=== PATIENT | male | born 1990 | race Caucasian/White ===

== ENCOUNTER 2017-06-01 13:17 | Emergency (ER) | payer OTHER ==
[~2017-06-01] VITALS: Ht 175.2 cm; Wt 90.7 kg
[2017-06-01] MEDS ORDERED: TESSALON PERLE100 MG PO (15:00)
== END 2017-06-01 15:02 | disposition home or self-care (01) ==
LOC: ED 13:17
DX: J06.9 Acute upper respiratory infection, unspecified (principal); F17.200 Nicotine dependence, unspecified, uncomplicated

== ENCOUNTER 2018-03-24 09:46 | Emergency (ER) | payer SELFPAY ==
[~2018-03-24] VITALS: Wt 104.3 kg
[~2018-03-24 09:46] MED LIST: TESSALON PERLE100 MG PO
== END 2018-03-24 11:10 | disposition home or self-care (01) ==
LOC: ED 09:46
DX: S61.214A Laceration without foreign body of right ring finger without damage to nail, initial encounter (principal); S61.216A Laceration without foreign body of right little finger without damage to nail, initial encounter; Z23 Encounter for immunization; W45.8XXA Other foreign body or object entering through skin, initial encounter; Y93.89 Activity, other specified; Y92.89 Other specified places as the place of occurrence of the external cause; Y99.8 Other external cause status

== ENCOUNTER 2019-11-05 05:12 | Emergency (ER) | payer OTHER ==
[~2019-11-05] VITALS: Ht 172.7 cm; Wt 93.0 kg
== END 2019-11-05 05:31 | disposition left against medical advice (07) ==
LOC: ED 05:12
DX: M54.5 Low back pain (principal); M79.604 Pain in right leg; Z79.899 Other long term (current) drug therapy; Z53.29 Procedure and treatment not carried out because of patient's decision for other reasons; V43.52XA Car driver injured in collision with other type car in traffic accident, initial encounter; Y93.I9 Activity, other involving external motion; Y92.488 Other paved roadways as the place of occurrence of the external cause; Y99.8 Other external cause status

== ENCOUNTER 2020-01-03 15:57 | Emergency (ER) | payer SELFPAY ==
[~2020-01-03] VITALS: Ht 175.2 cm; Wt 108.9 kg
[2020-01-03] MEDS ORDERED: IBUPROFEN600 MG PO (17:10)
[2020-01-03] MEDS ORDERED: ROBAXIN-750750 MG PO (17:10)
== END 2020-01-03 17:46 | disposition home or self-care (01) ==
LOC: ED 15:57
DX: S39.012A Strain of muscle, fascia and tendon of lower back, initial encounter (principal); Z79.899 Other long term (current) drug therapy; V89.2XXA Person injured in unspecified motor-vehicle accident, traffic, initial encounter; Y93.89 Activity, other specified; Y92.89 Other specified places as the place of occurrence of the external cause; Y99.8 Other external cause status

== ENCOUNTER 2025-01-10 19:13 | Emergency (ER) | payer SELFPAY ==
[~2025-01-10] VITALS: Ht 175.2 cm; Wt 99.8 kg
[~2025-01-10 19:13] MED LIST changes: +IBUPROFEN600 MG PO; +ROBAXIN-750750 MG PO
[2025-01-10] MEDS ORDERED: LISSAMINE GREEN 1.5 MG STRIP OP ONE (20:15)
[2025-01-10] MEDS ORDERED: Dexamethasone/Tobramycin OPHTHALMIC 2.5 ML BOTTLE OPH ONE (20:55)
== END 2025-01-10 21:49 | disposition home or self-care (01) ==
LOC: ED 19:13
DX: T15.02XA Foreign body in cornea, left eye, initial encounter (principal); W44.8XXA Other foreign body entering into or through a natural orifice, initial encounter; Y93.89 Activity, other specified; Y92.89 Other specified places as the place of occurrence of the external cause; Y99.8 Other external cause status